=== PATIENT | female | born 1970 | race Caucasian/White ===

== ENCOUNTER 2017-12-27 03:34 | Emergency (ER) | payer OTHER ==
[2017-12-27] MEDS ORDERED: VENL75TA PO (03:51)
[2017-12-27] MEDS ORDERED: LISI30TA4 PO (03:51)
[2017-12-27] MEDS ORDERED: GABA800T PO (03:51)
[2017-12-27 03:52] VITALS: BP 135/83; PULSE 88; RESP 18; O2SAT 100
[2017-12-27] MEDS ORDERED: LIDOCAINE HCL 1% 50 ML VIAL INFIL ONE (04:15)
[2017-12-27] MEDS ORDERED: CEPHALEXIN MONOHYDRATE 500 MG CAP PO ONE (04:15)
[2017-12-27] MEDS ORDERED: TETANUS/DIPHTHERIA TOXOID ADULT 0.5 ML VIAL IM ONE (04:15)
[2017-12-27] MEDS ORDERED: LIDOCAINE 1%/EPINEPHrine 1:100,000 SOLN 50 ML VIAL INFIL ONE (04:15)
[2017-12-27] MEDS ORDERED: LIDOCAINE HCL 1% PF 10 ML VIAL INFIL ONE (04:30)
[2017-12-27] MEDS ORDERED: LIDOCAINE HCL 2% 50 ML VIAL INFIL ONE (04:30)
[2017-12-27] MEDS ORDERED: CEPH-460 PO (04:50)
--- NOTE | 2017-12-27 04:52 | PD ---
HPI Chief Complaint: Alcohol/Drug Intoxication Time Seen by Provider: 04:04 Travel History International Travel<30 days: No Contact w/Intl Traveler<30days: No Traveled to known affect area: No History of Present Illness HPI Patient is a 47-year-old female presented to the emergency department under [place] act due to public intoxication. Patient admittedly has been consuming alcoholic beverages all evening. She states she got mad at her boyfriend when he left when out with his friends so she decided [place] the [place] intoxicated, she got lost and did not know where she lived and the police brought her to the hospital. Patient has a cut on her left third fingertip from cooking dinner, this occurred approximately 2 hours prior to arrival per her report. Patient's last tetanus vaccine was greater than 5 years ago. She denies any significant pain, has no other complaints at this time. Symptom onset was gradual throughout the course of the evening, exacerbated by her alcohol intake. PFSH Past Medical History Diabetes: No Patient Takes Glucophage: No Diminished Hearing: No Hypertension: Yes Tetanus Vaccination: > 5 Years ?: Unknown Tubal Ligation: Yes (2006) Past Surgical History Abdominal Surgery: Yes (, 2002) Section: Yes (2002) Social History Alcohol Use: Yes Tobacco Use: Yes Substance Use: Yes (ALCOHOL) Allergies-Medications (Allergen,Severity, Reaction): Coded Allergies: Sulfa (Sulfonamide Antibiotics) (Verified Allergy, Severe, 12/27/17) sulfamethoxazole (Verified Allergy, Severe, 12/27/17) trimethoprim (Verified Allergy, Severe, 12/27/17) Reported Meds & Prescriptions Reported Meds & Active Scripts Active Reported Effexor (Venlafaxine HCl) 75 Mg Tab 75 Mg PO DAILY Lisinopril 30 Mg Tab 30 Mg PO DAILY Gabapentin 800 Mg Tab 800 Mg PO TID Review of Systems Except as stated in HPI: all other systems reviewed are Neg Skin: Positive Other (Laceration) Psychiatric: Positive: Substance Abuse, No: Anxiety, Depression, Suicidal Ideations, Homicidal Ideation Physical Exam Narrative GENERAL: Well-developed, well-nourished, disheveled female. Presenting in no acute distress. SKIN: Warm and dry. 1 cm superficial laceration to the third fingertip. Base of wound is well visualized, there is no retained foreign body or bony involvement. HEAD: Atraumatic. Normocephalic. EYES: Pupils equal and round. No scleral icterus. No injection or drainage. ENT: No nasal bleeding or discharge. Mucous membranes pink and moist. NECK: Trachea midline. No JVD. CARDIOVASCULAR: Regular rate and rhythm. RESPIRATORY: No accessory muscle use. Clear to auscultation. Breath sounds equal bilaterally. GASTROINTESTINAL: Abdomen soft, non-tender, nondistended. Hepatic and splenic margins not palpable. MUSCULOSKELETAL: Extremities without clubbing, cyanosis, or edema. No obvious deformities. NEUROLOGICAL: Awake and alert. No obvious cranial nerve deficits. Motor grossly within normal limits. Five out of 5 muscle strength in the arms and legs. Normal speech. PSYCHIATRIC: Appropriate mood and affect; insight and judgment impaired.. Data Data Last Documented VS Vital Signs Date Time Temp Pulse Resp B/P (MAP) Pulse Ox O2 Delivery O2 Flow Rate FiO2 12/27/17 03:52 88 18 135/83 (100) 100 Orders Orders Alcohol (Ethanol) (12/27/17 04:04) Lidocai-Epi 1%-1:100,000 Inj (Xylocaine- (12/27/17 04:15) Cephalexin (Keflex) (12/27/17 04:15) Tetanus/Diphtheria Tox Adult (Tetanus/Di (12/27/17 04:15) Lidocaine 1% Inj (50 Ml) (Xylocaine 1% I (12/27/17 04:15) Lidocaine 2% Inj (Xylocaine 2% Inj) (12/27/17 04:30) Lidocaine Pf 1% Inj (Xylocaine-Mpf 1% In (12/27/17 04:30) Labs Laboratory Tests Test 12/27/17 04:05 Ethyl Alcohol Level 237 MG/DL MDM Medical Decision Making Medical Screen Exam Complete: Yes Emergency Medical Condition: Yes Interpretation(s) Vital Signs Date Time Temp Pulse Resp B/P (MAP) Pulse Ox O2 Delivery O2 Flow Rate FiO2 12/27/17 03:52 88 18 135/83 (100) 100 Differential Diagnosis Intoxication versus laceration versus skin avulsion versus cellulitis versus other Narrative Course Patient is a 47-year-old female brought into the emergency department after being found publicly intoxicated and not knowing where she lived. Patient sustained a laceration to her left third fingertip while making dinner. She is not up-to-date with a tetanus vaccine. Patient has been alert, cooperative, in the emergency department. She admittedly has been drinking throughout the night. She still does not know exactly where she lives. Alcohol level is 237, please see procedure report for laceration repair. Patient's tetanus vaccine was updated in the emergency department. When patient is clinically sober and able to demonstrate safe ambulation and oriented she will be discharged from the emergency department. Procedures Procedure Narrative LACERATION LOCATION: Left third fingertip LENGTH: 1 cm NUMBER OF STITCHES/JULITO: 2 stitches REPAIR: The area of the laceration was prepped with Betadine and sterilely draped. The laceration was infiltrated with 1% lidocaine. The wound was copiously irrigated and explored without evidence of foreign body, tendon injury or neurovascular injury. The wound was closed using 4-0 Prolene. This was a 1 layer repair. A sterile dressing was applied. The patient was advised to keep the dressing clean and dry. Patient tolerated the procedure well. Diagnosis Primary Impression: Acute alcohol intoxication Qualified Codes: F10.929 - Alcohol use, unspecified with intoxication, unspecified Additional Impression: Laceration of finger Qualified Codes: S61.213A - Laceration without foreign body of left middle finger without damage to nail, initial encounter Referrals: Primary Care Physician 1 week Patient Instructions: Alcohol Intoxication (ED), Care For Your Stitches (ED), Finger Laceration (ED), General Instructions Additional Instructions: Stitches will need to be removed in 7 days, you may return to the emergency department or follow-up with your primary doctor Avoid going into the ocean until your wound is well healed Complete full course of antibiotics as directed You may wash with soap and water/shower, do not submerge hand in water. Return to emergency department for any new or worsening symptoms Med/Other Pt SpecificInfo: Prescription(s) given Scripts Cephalexin (Keflex) 500 Mg Cap 500 MG PO Q12H for Infection for 5 Days, #10 CAP 0 Refills Prov: Sonia Winter 12/27/17 Disposition: 01 DISCHARGE HOME Condition: Stable Sonia Winter Dec 27, 2017 04:52
[2017-12-27 07:15] VITALS: BP 122/82; PULSE 80; RESP 16; O2SAT 99
== END 2017-12-27 12:31 | disposition home or self-care (01) ==
LOC: NEPD 03:34
DX: F10.929 Alcohol use, unspecified with intoxication, unspecified (principal); S61.213A Laceration without foreign body of left middle finger without damage to nail, initial encounter; I10 Essential (primary) hypertension; W45.8XXA Other foreign body or object entering through skin, initial encounter; Y93.G3 Activity, cooking and baking; Y92.000 Kitchen of unspecified non-institutional (private) residence as the place of occurrence of the external cause; Y90.7 Blood alcohol level of 200-239 mg/100 ml; Z23 Encounter for immunization; Z72.0 Tobacco use; Z88.2 Allergy status to sulfonamides
CPT/HCPCS: 12001; 80307; 90471; 90714